=== PATIENT | female | born 1995 | race Two or more races ===

== ENCOUNTER 2024-04-11 16:57 | Emergency (ER) | payer OTHER ==
[~2024-04-11] VITALS: Ht 162.6 cm; Wt 53.1 kg
[2024-04-11 17:58] LABS: Basophils # (auto) 0.1 10 ^3/uL (0-0.2); Basophils % (auto) 0.4 % (0.0-2.0); Eosinophils # (auto) 0 10 ^3/uL (0-0.8); Eosinophils % (auto) 0.2 % (0.0-7.0); Hematocrit 42.6 % (36.0-46.0); Hemoglobin 14.7 g/dL (12.2-16.2); Lymphocytes # (auto) 2.7 10 ^3/uL (0.4-5.4); Lymphocytes % (auto) 19.7 % (10.0-50.0); Mean Corpuscular Hemoglobin 30.6 pg (28.0-32.0); Mean Corpuscular Hgb Conc. 34.4 g/dL (32.0-36.0); Monocytes # (auto) 0.6 10 ^3/uL (0-1.3); Monocytes % (auto) 4.3 % (0.0-12.0); Neutrophils # (auto) 10.5 10 ^3/uL (1.6-8.6); Neutrophils % (auto) 75.4 % (37.0-80.0); Nucleated Red Blood Cells % 0.1 %; Red Blood Cells 4.78 10^6/uL (4.0-5.20); Red Cell Distribution Width 12.6 % (11.8-14.3); White Blood Cell 13.9 10^3/uL (4.4-10.8)
[2024-04-11 18:07] LABS: Urine Bacteria None Seen /hpf (None Seen)
[2024-04-11 18:10] LABS: Anion Gap 8 (5-15); Carbon Dioxide 24 mmol/L (20-30); Chloride 105 mmol/L (98-107); Potassium 3.9 mmol/L (3.5-5.1); Sodium 137 mmol/L (136-145)
[2024-04-11 18:11] LABS: Calcium 10.1 mg/dL (8.7-10.4)
[2024-04-11 18:16] LABS: Blood Alcohol 4.9 mg/dL (<10); Blood Urea Nitrogen 7 mg/dL (9-23); Glucose 89 mg/dL (74-106)
[2024-04-11 18:17] LABS: Acetaminophen < 2.0 UG/ML (10.0-20.0)
[2024-04-11 18:18] LABS: Salicylate < 3.0 mg/dL (2.8-20.0)
[2024-04-11 18:21] LABS: Urine Blood 1+ /uL (Negative); Urine Clarity Clear (Clear); Urine Color Colorless (Yellow); Urine Mucus FEW (None Seen); Urine Protein, UAD Negative (Negative); Urine Specific Gravity 1.007 (1.001-1.035); Urine Urobilinogen Normal (Negative); Urine WBC 1 /hpf (0 - 5); Urine pH 5.5 (5.0-9.0)
[2024-04-11 18:32] LABS: Amphetamine Screen, Urine Neg (NEGATIVE); Barbiturate Scree,Urine Neg (NEGATIVE); Benzodiazephine Screen, Urine Neg (NEGATIVE); Cocaine Screen, Urine Neg (NEGATIVE)
[2024-04-11 18:33] LABS: Opiate Scree,Urine Neg (NEGATIVE); Phencyclidine Screen, Urine Neg (NEGATIVE)
[2024-04-11 18:34] LABS: Cannabinoid Screen, Urine Pos (NEGATIVE)
[2024-04-11] MEDS: OLANZapine 5 MG TAB PO ONE (21:00)
[2024-04-11 22:00] VITALS: PULSE 61; RESP 20; O2SAT 98
[2024-04-12] VITALS: BP 106/65; PULSE 58; RESP 18; TEMP 98.3; O2SAT 98
[2024-04-12] MEDS ORDERED: ARIP2TAB PO (01:03)
[2024-04-12] MEDS ORDERED: MIRT-94 OR (01:04)
== END 2024-04-12 01:27 | disposition home or self-care (01) ==
LOC: ER 16:57
DX: F29 Unspecified psychosis not due to a substance or known physiological condition (principal); F41.9 Anxiety disorder, unspecified; F12.90 Cannabis use, unspecified, uncomplicated
CPT/HCPCS: 36415; 80048; 80307; 80320; 80329; 81001; 81025; 85025